=== PATIENT | male | born 1980 | race Caucasian/White ===

== ENCOUNTER 2017-06-18 03:31 | Emergency (ER) | payer BC ==
[2017-06-18 04:22] LABS: BASO % 0.2 % (0-2.0); EOS % 0.3 % (0-4.5); HEMATOCRIT 43.4 % (35.4-49); HEMOGLOBIN 14.3 GM/dL (11.7-16.9); LYMPH % 26.8 % (8-40); MCH 26.6 pg (25.7-33.7); MEAN CELL VOLUME 80.8 fl (80-96); MEAN PLT VOLUME 8.4 fl (7.5-11.1); MONO % 13.2 % (3.8-10.2); NEUT % 59.5 % (42.8-82.8); PLATELET COUNT 229 K/MM3 (134-434); RBC 5.37 M/mm3 (4.00-5.60); RDW 14.6 % (11.9-15.9); WHITE BLOOD COUNT 10.3 K/mm3 (4.0-10.0)
[2017-06-18] MEDS ORDERED: ONDANSETRON 4 MG/2 ML VIAL ONE (04:27)
--- NOTE | 2017-06-18 04:41 | PDOC ---
History of Present Illness - General History Source: Patient Exam Limitations: No Limitations - History of Present Illness Initial Comments: 06/18/17 06:18 Patient is a 36 year old male with no significant past medical history who presents to the ED with complaints of frontal head pain that began earlier today. Patient reports experiencing sudden onset of frontal head pain that began this morning and has yet to subside. He reports head pain is a pressured pain that is localized around his nasal cavity. He reports experiencing throat pain secondary to swallowing. Patient reports experiencing 2 episodes of vomiting as well as 2 episodes of diarrhea. 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 Denies chest pain, Sob. Denies fevers, chills. Denies trauma to affected area. Denies constipation, dysuria, hematuria, change in appetite. Denies any other symptoms. Allergies: None Social history: No smoking. No alcohol. No illicit drugs. Surgical history: None PMD: None <Tanner Tello - Last Filed: 06/18/17 06:17> <Merline Brar - Last Filed: 06/18/17 06:47> - General Chief Complaint: Pain Stated Complaint: ABD PAIN Time Seen by Provider: 06/18/17 04:41 Past History <Tanner Tello - Last Filed: 06/18/17 06:17> - Past Medical History COPD: No - Immunization History Immunization Up to Date: Yes - Suicide/Smoking/Psychosocial Hx Smoking History: Never smoked Have you smoked in the past 12 months: No Information on smoking cessation initiated: No Hx Alcohol Use: No Drug/Substance Use Hx: No Substance Use Type: None <Merline Brar - Last Filed: 06/18/17 06:47> - Past Medical History Allergies/Adverse Reactions: Allergies Allergy/AdvReac Type Severity Reaction Status Date / Time No Known Allergies Allergy Verified 06/18/17 03:59 Home Medications: Ambulatory Orders Amoxicillin/Potassium Clav [Augmentin 875-125 Tablet] 1 each PO BID #14 tablet 06/18/17 Review of Systems - Review of Systems Able to Perform ROS?: Yes Comments:: 06/18/17 06:18 GENERAL/CONSTITUTIONAL: No fever or chills. No weakness. HEAD, EYES, EARS, NOSE AND THROAT: No change in vision. No ear pain or discharge. No sore throat. CARDIOVASCULAR: No chest pain or shortness of breath. RESPIRATORY: No cough, wheezing, or hemoptysis. GASTROINTESTINAL: +Nausea. +Vomiting. +Diarrhea No constipation. GENITOURINARY: No dysuria, frequency, or change in urination. MUSCULOSKELETAL: No joint or muscle swelling or pain. No neck or back pain. SKIN: No rash NEUROLOGIC: +headache. No vertigo, loss of consciousness, or change in strength/sensation. ENDOCRINE: No increased thirst. No abnormal weight change. HEMATOLOGIC/LYMPHATIC: No anemia, easy bleeding, or history of blood clots. ALLERGIC/IMMUNOLOGIC: No hives or skin allergy. All Other Systems: Reviewed and Negative <Tanner Tello - Last Filed: 06/18/17 06:17> *Physical Exam - Vital Signs Last Vital Signs Temp Pulse Resp BP Pulse Ox 98.8 F 93 H 22 121/73 94 L 06/18/17 03:35 06/18/17 03:35 06/18/17 03:35 06/18/17 03:35 06/18/17 03:35 - Physical Exam Comments: 06/18/17 06:18 GENERAL: Awake, alert, and fully oriented, in no acute distress HEAD: No signs of trauma EYES: PERRLA, EOMI, sclera anicteric, conjunctiva clear ENT: Auricles normal inspection, hearing grossly normal, nares patent, oropharynx clear without exudates. Moist mucosa NECK: Normal ROM, supple, no lymphadenopathy, JVD, or masses LUNGS: Breath sounds equal, clear to auscultation bilaterally. No wheezes, and no crackles HEART: +Tachycardic. Regular rate and rhythm, normal S1 and S2, no murmurs, rubs or gallops ABDOMEN: Soft, nontender, normoactive bowel sounds. No guarding, no rebound. No masses EXTREMITIES: Normal range of motion, no edema. No clubbing or cyanosis. No cords, erythema, or tenderness NEUROLOGICAL: +Anxious. Cranial nerves II through XII grossly intact. Normal speech, normal gait SKIN: Warm, Dry, normal turgor, no rashes or lesions noted. <Tanner Tello - Last Filed: 06/18/17 06:17> - Vital Signs Last Vital Signs Temp Pulse Resp BP Pulse Ox 98.8 F 93 H 22 121/73 94 L 02/05/18 03:35 06/18/17 03:35 06/18/17 03:35 06/18/17 03:35 06/18/17 03:35 <Merline Brar - Last Filed: 06/18/17 06:47> ED Treatment Course - LABORATORY CBC & Chemistry Diagram: 06/18/17 04:13 06/18/17 04:13 - ADDITIONAL ORDERS Additional order review: Laboratory Results 06/18/17 04:13 Sodium 139 Potassium 3.7 Chloride 102 Carbon Dioxide 24 Anion Gap 13 BUN 11 Creatinine 1.2 Creat Clearance w eGFR > 60 Random Glucose 113 H Calcium 8.8 Total Bilirubin 0.8 AST 41 H ALT 67 Alkaline Phosphatase 77 Total Protein 8.1 Albumin 4.0 06/18/17 04:22 Influenza Types A,B Antigen (CELESTE) - Final Nasopharyngeal Aspirate - Final 06/18/17 04:13 RBC 5.37 MCV 80.8 MCHC 33.0 RDW 14.6 MPV 8.4 Neutrophils % 59.5 Lymphocytes % 26.8 Monocytes % 13.2 H Eosinophils % 0.3 Basophils % 0.2 - Medications Given in the ED: ED Medications Discontinued Medications Generic Name Dose Route Start Last Admin Trade Name Freq PRN Reason Stop Dose Admin Acetaminophen 1,000 mg 06/18/17 05:08 06/18/17 05:12 Ofirmev Injection - IVPB 06/18/17 05:09 1,000 mg ONCE ONE Administration <Tanner Tello - Last Filed: 06/18/17 06:17> - LABORATORY CBC & Chemistry Diagram: 06/18/17 04:13 06/18/17 04:13 - ADDITIONAL ORDERS Additional order review: 06/18/17 04:13 RBC 5.37 MCV 80.8 MCHC 33.0 RDW 14.6 MPV 8.4 Neutrophils % 59.5 Lymphocytes % 26.8 Monocytes % 13.2 H Eosinophils % 0.3 Basophils % 0.2 <Merline Brar - Last Filed: 06/18/17 06:47> Medical Decision Making - Medical Decision Making 06/18/17 06:46 Pt comes with fever and headache and feeling unwell. He is anxious and tachycardic. Flu negative. Pt's labs are normal. Pt was hydrated in the ER. CT head and sinuses demonstrate frontal and maxillary sinusitis. He will be treated with augmentin and he will be asked to follow with ENT as needed. <Merline Brar - Last Filed: 06/18/17 06:47> *DC/Admit/Observation/Transfer - Attestations Scribe Attestion: 06/18/17 06:18 Documentation prepared by Tanner Tello, acting as biomedical equipment tech for Merline Brar MD/DO. <Tanner Tello - Last Filed: 06/18/17 06:17> - Discharge Dispostion Admit: No <Merline Brar - Last Filed: 06/18/17 06:47> Diagnosis at time of Disposition: Maxillary sinusitis, acute - Discharge Dispostion Disposition: HOME Condition at time of disposition: Improved - Prescriptions Prescriptions: Amoxicillin/Potassium Clav [Augmentin 875-125 Tablet] 1 each PO BID #14 tablet - Referrals Referrals: See Barboza MD [Staff Physician] - - Patient Instructions Printed Discharge Instructions: DI for Sinusitis - Post Discharge Activity Forms/Work/School Notes: Back to Work
[2017-06-18] MEDS ORDERED: LACTATED RINGERS SOLUTION 1,000 ML/1,000 ML INFUS.BAG IV SCH (04:45)
[2017-06-18 04:56] VITALS: BMI 27.3
[2017-06-18] MEDS ORDERED: ACETAMINOPHEN 1000 MG/100 ML VIAL (NON FORMULARY) IVPB ONE (05:08)
[2017-06-18 05:09] LABS: BILIRUBIN,TOTAL 0.8 mg/dL (0.2-1.0); BLOOD UREA NITROGEN 11 mg/dL (7-18); CALCIUM 8.8 mg/dL (8.5-10.1); CO2 24 mmol/L (21-32); CREATININE 1.2 mg/dL (0.7-1.3); GLUCOSE,RANDOM 113 mg/dL (74-106); SGOT/AST 41 U/L (15-37); SGPT/ALT 67 U/L (12-78); TOT PROT 8.1 g/dl (6.4-8.2)
[2017-06-18 05:17] LABS: ALK PHOS 77 U/L (45-117); ANION GAP 13 (8-16); CHLORIDE 102 mmol/L (98-107); POTASSIUM 3.7 mmol/L (3.5-5.1); SODIUM 139 mmol/L (136-145)
[2017-06-18] MEDS ORDERED: AMOX TR/POT CLAV 875MG/125MG TABLETS (FP) PO ONE (06:03)
[2017-06-18] MEDS ORDERED: AMOX TR/POT CLAV 875MG/125MG TABLETS (FP) ONE (06:15)
[2017-06-18 06:20] VITALS: BP 118/70; PULSE 87; TEMP 98.7
== END 2017-06-18 06:20 | disposition home or self-care (01) ==
LOC: JER 03:31
PROC: 3E0337Z Introduction of Electrolytic and Water Balance Substance into Peripheral Vein, Percutaneous Approach (ICD-10-PCS; principal; 2017-06-18)
DX: J01.00 Acute maxillary sinusitis, unspecified (principal)
CPT/HCPCS: 36415; 70450-TC; 70486-TC; 71046-TC-FY; 80053; 85025; 87804; 99282-25

== ENCOUNTER 2020-03-29 12:08 | Inpatient (IN) | payer BC, OTHER ==
[2020-03-29] MEDS ORDERED: ONDANSETRON 4 MG/2 ML VIAL IVPUSH ONE (12:47)
[2020-03-29] MEDS ORDERED: morphine CARPU-JECT 4 MG/1 ML DISP.SYRIN IVPUSH ONE (12:47)
[2020-03-29] MEDS ORDERED: SODIUM CHLORIDE 1,000 ML IV STA (12:47)
[2020-03-29 13:09] VITALS: BMI 30.4
[2020-03-29] MEDS ORDERED: FAMOTIDINE 20 MG/50 ML IVPB 20 MG/50 ML MG IVPB ONE ×2 (13:59→14:25)
[2020-03-29] MEDS ORDERED: morphine SULFATE 4 MG/ML VIAL ONE (14:25)
[2020-03-29 14:38] LABS: BASO % 0.1 % (0-2.0); HEMATOCRIT 48.4 % (35.4-49); HEMOGLOBIN 16.1 GM/dL (11.7-16.9); LYMPH % 3.4 % (8-40); MCH 27.2 pg (25.7-33.7); MCHC 33.2 g/dl (32.0-35.9); MEAN CELL VOLUME 81.8 fl (80-96); MONO % 3.9 % (3.8-10.2); NEUT % 92.6 % (42.8-82.8); PLATELET COUNT 249 K/MM3 (134-434); RBC 5.91 M/mm3 (4.00-5.60); RDW 14.4 % (11.9-15.9); WHITE BLOOD COUNT 14.4 K/mm3 (4.0-10.0)
[2020-03-29 14:57] LABS: EPI CELLS 4 /uL (0-25.1); HYALINE CASTS 1 /uL (0-3.1); PH,URINE 5.5 (5.0-8.0); URINE APPEARANCE CLEAR; URINE BILIRUBIN NEGATIVE (NEGATIVE); URINE COLOR DK YELLOW; URINE GLUCOSE (UA) NEGATIVE (NEGATIVE); URINE KETONE NEGATIVE (NEGATIVE); URINE LEUK ESTERASE NEGATIVE (NEGATIVE); URINE NITRITE POSITIVE (NEGATIVE); URINE PROTEIN NEGATIVE (NEGATIVE); URINE RBC 8 /uL (0-23.9); URINE WBC 4 /uL (0-25.8)
[2020-03-29 15:06] LABS: POTASSIUM 4.4 mmol/L (3.5-5.1)
[2020-03-29 15:08] LABS: ALBUMIN 4.4 g/dl (3.4-5.0); CALCIUM 9.9 mg/dL (8.5-10.1)
[2020-03-29 15:09] LABS: BLOOD UREA NITROGEN 17.5 mg/dL (7-18)
[2020-03-29 15:12] LABS: CREATININE 1.3 mg/dL (0.55-1.3)
[2020-03-29 15:13] LABS: BILIRUBIN,TOTAL 0.8 mg/dL (0.2-1); TOT PROT 8.8 g/dl (6.4-8.2)
[2020-03-29 15:48] LABS: PLATELET ESTIMATE NORMAL
[2020-03-29] MEDS ORDERED: PIPERACILLIN/TAZOB 4.5 GM 4.5 GM in DEXTROSE 5%-WATER 100 ML IVPB ONE (17:04)
[2020-03-29] MEDS ORDERED: PIPERACILLIN/TAZOB 4.5 GM 4.5 GM/100 ML BAG IVPB ONE (17:34)
[2020-03-29 18:12] LABS: URINE BACTERIA 3.8 /uL (0-1359)
[2020-03-29 19:12] LABS: INR 1.09 (0.83-1.09); PROTHROMBIN TIME (PATIENT) 13.2 SEC (9.7-13.0)
[2020-03-29 19:15] LABS: ACTIVATED PTT 33.8 SECONDS (25.2-36.5)
[2020-03-29] MEDS ORDERED: ONDANSETRON 8 MG TABLET (FP) PO PRN (21:27)
[2020-03-29] MEDS ORDERED: AMOX TR/POT CLAV 500MG/125MG TABLETS (FP) ONE (21:34)
[2020-03-29] MEDS ORDERED: PANTOPRAZOLE 40 MG TABLET ONE (21:34)
[2020-03-29] MEDS: SODIUM CHLORIDE 1,000 ML IV SCH (21:38)
[2020-03-29] MEDS: AMOX TR/POT CLAV 500MG/125MG TABLETS (FP) PO SCH ×2 (21:38→22:10)
[2020-03-29] MEDS: PANTOPRAZOLE 40 MG TABLET PO SCH (21:38)
[2020-03-30] MEDS ORDERED: ACETAMINOPHEN 500 MG TABLET (FP) PO ONE (00:31)
[2020-03-30] MEDS: AMOX TR/POT CLAV 500MG/125MG TABLETS (FP) PO SCH ×3 (05:20→17:40)
[2020-03-30] MEDS: SODIUM CHLORIDE 1,000 ML IV SCH ×2 (05:25→15:16)
[2020-03-30] MEDS ORDERED: ACETAMINOPHEN 325 MG TABLET (FP) PO PRN (08:49)
[2020-03-30 08:53] LABS: HEMATOCRIT 42.9 % (35.4-49); HEMOGLOBIN 14.1 GM/dL (11.7-16.9); MCH 26.9 pg (25.7-33.7); MCHC 32.9 g/dl (32.0-35.9); MEAN CELL VOLUME 81.8 fl (80-96); MEAN PLT VOLUME 8.4 fl (7.5-11.1); PLATELET COUNT 217 K/MM3 (134-434); RBC 5.24 M/mm3 (4.00-5.60); RDW 14.8 % (11.9-15.9); WHITE BLOOD COUNT 11.4 K/mm3 (4.0-10.0)
[2020-03-30] MEDS: PANTOPRAZOLE 40 MG TABLET PO SCH ×2 (09:05→21:16)
[2020-03-30 09:19] LABS: CALCIUM 8.9 mg/dL (8.5-10.1)
[2020-03-30 09:20] LABS: ALBUMIN 3.6 g/dl (3.4-5.0); BLOOD UREA NITROGEN 11.6 mg/dL (7-18); MAGNESIUM 2.2 mg/dL (1.8-2.4)
[2020-03-30 09:23] LABS: CREATININE 1.2 mg/dL (0.55-1.3); PHOSPHOROUS 2.8 mg/dL (2.5-4.9)
[2020-03-30 09:24] LABS: BILIRUBIN,TOTAL 1.1 mg/dL (0.2-1); TOT PROT 7.4 g/dl (6.4-8.2)
[2020-03-30] MEDS ORDERED: cefTRIAXone SODIUM 1 GM VIAL ONE (17:42)
[2020-03-30] MEDS ORDERED: DEXTROSE 5%-WATER - 50 ML IVPB ONE (17:42)
[2020-03-30] MEDS ORDERED: CEFTRIAXONE 1 GM in DEXTROSE 5%-WATER - 100 ML IVPB SCH (17:45)
[2020-03-30] MEDS: CEFTRIAXONE 1 GM in DEXTROSE 5%-WATER - 50 ML IVPB SCH (18:08)
[2020-03-31] MEDS: SODIUM CHLORIDE 1,000 ML IV SCH (01:10)
[2020-03-31 08:05] LABS: INR 1.06 (0.83-1.09); PROTHROMBIN TIME (PATIENT) 12.8 SEC (9.7-13.0)
[2020-03-31 08:07] LABS: BASO % 0.2 % (0-2.0); HEMATOCRIT 40.6 % (35.4-49); HEMOGLOBIN 13.7 GM/dL (11.7-16.9); LYMPH % 29.3 % (8-40); MCH 27.9 pg (25.7-33.7); MCHC 33.8 g/dl (32.0-35.9); MEAN CELL VOLUME 82.6 fl (80-96); MEAN PLT VOLUME 8.6 fl (7.5-11.1); MONO % 9.3 % (3.8-10.2); NEUT % 60.2 % (42.8-82.8); PLATELET COUNT 210 K/MM3 (134-434); RBC 4.91 M/mm3 (4.00-5.60); RDW 14.7 % (11.9-15.9); WHITE BLOOD COUNT 9.2 K/mm3 (4.0-10.0)
[2020-03-31 08:22] LABS: POTASSIUM 3.9 mmol/L (3.5-5.1)
[2020-03-31 08:43] LABS: ALBUMIN 3.3 g/dl (3.4-5.0); BLOOD UREA NITROGEN 9.4 mg/dL (7-18); CALCIUM 8.9 mg/dL (8.5-10.1); MAGNESIUM 2.1 mg/dL (1.8-2.4)
[2020-03-31 08:46] LABS: CREATININE 1.1 mg/dL (0.55-1.3)
[2020-03-31 08:48] LABS: BILIRUBIN,TOTAL 0.8 mg/dL (0.2-1); TOT PROT 6.8 g/dl (6.4-8.2)
[2020-03-31] MEDS ORDERED: DEXTROSE 5%-WATER - 50 ML IVPB ONE (10:40)
[2020-03-31] MEDS ORDERED: cefTRIAXone SODIUM 1 GM VIAL ONE (10:40)
[2020-03-31] MEDS: PANTOPRAZOLE 40 MG TABLET PO SCH (10:52)
[2020-03-31] MEDS: CEFTRIAXONE 1 GM in DEXTROSE 5%-WATER - 50 ML IVPB SCH (10:52)
[2020-03-31 18:05] VITALS: BP 118/68; PULSE 71; TEMP 98.9
[2020-03-31] MEDS ORDERED: PHENAZOPYRIDINE HCL 100 MG TABLET (FP) PO SCH (22:00)
== END 2020-03-31 18:26 | disposition home or self-care (01) | DRG 392 ==
LOC: JER 12:08 → JERBED 18:44 → J5S 03-30 00:02
PROVIDERS: ADMIT Internal Medicine; ATTEND Nurse Practitioner Acute Care
DX: A09 Infectious gastroenteritis and colitis, unspecified (principal); E87.2 Acidosis; K92.1 Melena; N39.0 Urinary tract infection, site not specified; K21.9 Gastro-esophageal reflux disease without esophagitis; N28.89 Other specified disorders of kidney and ureter; K29.70 Gastritis, unspecified, without bleeding; A04.8 Other specified bacterial intestinal infections; R10.84 Generalized abdominal pain; R11.2 Nausea with vomiting, unspecified; J01.00 Acute maxillary sinusitis, unspecified; R63.0 Anorexia; Z68.30 Body mass index [BMI] 30.0-30.9, adult; D72.829 Elevated white blood cell count, unspecified
CPT/HCPCS: 36415; 74177-TC; 80053; 81003; 82272; 83605; 83690; 83735; 84100; 84484; 85025; 85027; 85610; 85651; 85730; 86140; 86850; 86900; 86901; 87040; 87045; 87046; 87086; 87324; 87449; 93005; 93010; 99285-25; C9803; Q9967; U0003